=== PATIENT | female | born 1965 ===

== ENCOUNTER → 2018-03-25 | Outpatient (CLI) | payer BC ==
[2013-11-05 12:41] VITALS: BMI 32.1
[~2018-03-25] MED LIST: ACET-1966 PO; ALB0.5 IH; ALB6.7R INH; ALBU8.5H IH; ALBUDR INH; AUG875 PO; AZI250 PO; CAR100 PO; CIP500 PO; DOXY-228 PO; FLUINH INH; IBU600 PO; IPR14R IH; IPRATROPIUM HFA; LEVO150T72 PO; LOR5 PO; PER PO; POTA10CA61 PO; PRE10 PO; PRE20 PO
--- NOTE | 2018-03-25 11:38 | RADIOLOGY IMAGING REPORT ---
FACILITY: [facility] PATIENT NAME: Lesvia Dos Santos : 1965 MR: [id number] V: [id number] EXAM DATE: ORDERING PHYSICIAN: RYAN OLSEN TECHNOLOGIST: Location: [facility] Patient: Lesvia Dos Santos : 1965 Visit/Account:[id number] Date of Sevice: 03/25/2018 Technique: CHEST PA LAT HISTORY: Cough Comparison studies: Chest radiograph 11/07/2013 FINDINGS: No acute airspace consolidation. No pleural effusion. The cardiomediastinal silhouette is unchanged. IMPRESSION: 1. No acute cardiopulmonary process. Report Dictated By: Johnathan Bautista DO at 03/25/2018 11:28 AM Report E-Signed By: Johnathan Bautista DO at 03/25/2018 11:30 AM WSN:[id number]
== END ==
LOC: RAD 09:50
PROVIDERS: ATTEND Nurse Practitioner Family
DX: J45.909 Unspecified asthma, uncomplicated (principal); R05 Cough; R06.02 Shortness of breath
CPT/HCPCS: 71046